=== PATIENT | female | born 1950 | race Caucasian/White ===

== ENCOUNTER 2021-09-23 05:28 | Emergency (ER) | payer OTHER, MEDICAID, SELFPAY ==
[2021-09-23 05:49] VITALS: BP 172/79; PULSE 94; RESP 20; TEMP 36.1; O2SAT 99
[2021-09-23 07:18] VITALS: BP 139/69; PULSE 74; RESP 14; O2SAT 99
[2021-09-23] MEDS: ACETAMINOPHEN 325 MG TABLET 650 MG PO (08:56)
[2021-09-23] MEDS: IBUPROFEN 600 MG TABLET PO (08:57)
[2021-09-23 09:00] LABS: Basophils Percent Auto 0.3 % (0.2-1.2); Eosinophils Percent Auto 0.2 % (0-4.4); Hematocrit 39.7 % (37.0-47.0); Hemoglobin 13.1 g/dL (12.0-15.0); Immature Granulocyte Absolute 0.04 K/mm3 (0.00-0.031); Immature Granulocyte Percent A 0.4 % (0-0.5); Lymphocytes Absolute Auto 1.36 K/mm3 (0.9-3.2); Lymphocytes Percent Auto 12.1 % (18.3-44.2); Mean Corpuscular Hemoglobin 30.5 pg (26-34); Mean Corpuscular Volume 92.3 fl (80-100); Mean Platelet Volume 10.4 fl (7.4-10.4); Monocytes Absolute Auto 0.6 K/mm3 (0.1-0.6); Monocytes Percent Auto 5.3 % (2.6-8.5); Neutrophils Absolute Auto 9.2 K/mm3 (1.3-6.7); Neutrophils Percent Auto 81.7 % (45.5-73.1); Platelet Count Result 170 k/mm3 (150-375); Red Cell Distribution Width 13.2 % (11.5-14.5); White Blood Count 11.2 K/mm3 (4.5-10.0)
--- NOTE | 2021-09-23 09:01 | ED.GENADULT ---
HPI - General Adult General Chief complaint: Skin/Abscess/Foreign Body Stated complaint: fatigue x 2 days with right leg redness Time Seen by Provider: 09/23/21 08:36 Source: patient Mode of arrival: ambulatory Limitations: no limitations History of Present Illness HPI narrative: Patient is 71 years old white female presented to the ED complaining of feeling tired, longer hours of sleep, intermittent nausea and vomiting, hot and cold feeling for the last 48 hours. Patient noticed that the right lower leg is red and warm. Patient had similar symptoms secondary to cellulitis. Patient is not diabetic. Patient denies exposure to anybody with COVID symptoms. Patient had 1 COVID-vaccine November 2020 Related Data Home Medications Medication Instructions Recorded Confirmed baclofen mg 09/23/21 enalapril maleate 09/23/21 hydrochlorothiazide 09/23/21 metoprolol tartrate 09/23/21 oxybutynin chloride 09/23/21 paroxetine HCl mg PO 09/23/21 ropinirole mg 09/23/21 Allergies Allergy/AdvReac Type Severity Reaction Status Date / Time No Known Allergies Allergy Verified 09/23/21 05:30 Review of Systems Review of Systems: CONSTITUTIONAL: Denies fever, chills, or sweats. EYES: Denies visual changes, redness, or discharge. ENT: Denies rhinorrhea, congestion, sore throat, or otalgia. CARDIOVASCULAR: Denies chest pain, palpitations, or edema. RESPIRATORY: Denies cough or dyspnea. GASTROINTESTINAL: Denies abdominal pain, nausea, vomiting, or diarrhea. GENITOURINARY: Denies dysuria or hematuria. SKIN: Red, warm and tender right lower leg MUSCULOSKELETAL: Denies back pain, joint pain, or myalgia. NEUROLOGIC: Denies headache, numbness, or weakness. PSYCHIATRIC: Denies anxiety or depression. PMFSH Past Medical History Medical History Anxiety Arthritis Chronic renal disease, stage III H/O: HTN (hypertension) History of irregular heartbeat Sleep apnea Surgical History Surgical History History of cholecystectomy History of dilation and curettage History of tonsillectomy Previous section x4. Exam Narrative: General appearance: Well-developed, well-nourished Skin: Normal color right lower leg showed extensive erythema distally, warm, slightly tender no discharge Head: Normocephalic, nontraumatic Eyes: Clear conjunctiva ENT: Oropharynx normal, ears normal, nose normal Neck: Supple, nontender Chest and respiratory: Airway patent, no respiratory distress, no accessory muscle use Heart: Regular rate/rhythm Abdomen: Soft, nontender, no organomegaly, quiet bowel sounds Vascular: Normal peripheral pulses, normal capillary refill. Musculoskeletal: Normal range of motion, nontender back Neurologic: Alert and oriented ?3, ANTHROPOLOGICAL LINGUIST is normal as tested, no gross motor deficit Course Course Emergency Course: Stable Vital Signs Vital signs: Vital Signs Temperature 36.1 C L 09/23/21 05:49 Pulse Rate 94 09/23/21 05:49 Respiratory Rate 20 09/23/21 05:49 Blood Pressure 172/79 H 09/23/21 05:49 Pulse Oximetry 99 09/23/21 05:49 Temperature 36.1 C L 09/23/21 05:49 Pulse Rate 74 09/23/21 07:18 Respiratory Rate 14 09/23/21 07:18 Blood Pressure 139/69 09/23/21 07:18 Pulse Oximetry 99 09/23/21 07:18 Medical Decision Making [facility] Narrative Medical decision making narrative: Right lower leg cellulitis Differential Diagnosis Differential Diagnosis: Cellulitis Vital Signs Vital Signs: Vital Signs Temperature 36.1 C L 09/23/21 05:49 Pulse Rate 94 09/23/21 05:49 Respiratory Rate 20 09/23/21 05:49 Blood Pres
[2021-09-23 09:10] LABS: Anion Gap 5 mmol/L (8-16); Blood Urea Nitrogen 17 mg/dL (7-17); Calcium 9.1 mg/dL (8.4-10.2); Carbon Dioxide 30 mmol/L (22-30); Chloride 100 mmol/L (98-107); Estimated CRCL calculation 72 ml/min; Estimated Glomerular Filt Rate > 60; Glucose 119 mg/dL (65-110); Potassium 3.7 mmol/L (3.4-5.0); Sodium 135 mmol/L (137-145)
[2021-09-23 09:45] VITALS: BP 141/65; PULSE 64; RESP 14; O2SAT 100
[2021-09-23 10:43] VITALS: BP 143/63; PULSE 96; RESP 14; O2SAT 97
== END 2021-09-23 10:43 | disposition home or self-care (01) ==
PROVIDERS: Emergency Provider Emergency Medicine; PCP Internal Medicine
DX: L03.115 Cellulitis of right lower limb (principal); I12.9 Hypertensive chronic kidney disease with stage 1 through stage 4 chronic kidney disease, or unspecified chronic kidney disease; N18.30 Chronic kidney disease, stage 3 unspecified; M19.90 Unspecified osteoarthritis, unspecified site; F41.9 Anxiety disorder, unspecified; G47.30 Sleep apnea, unspecified
CPT/HCPCS: 36415; 80048; 85025; 96365; 96366; 99284; A9270; J3370